=== PATIENT | male | born 1935 | race Caucasian/White ===

== ENCOUNTER 2018-09-26 14:52 | Outpatient (RCR) | payer MEDICARE ==
[2018-11-01] MEDS ORDERED: ATOR20TA66 PO (10:51)
[2018-11-01] MEDS ORDERED: ASPI-586 PO (10:51)
[2018-11-01] MEDS ORDERED: GABA-488 PO (10:51)
[2018-11-01] MEDS ORDERED: ACET-2650 PO (10:51)
[2018-11-01] MEDS ORDERED: SERT100T8 PO (10:51)
[2018-11-01] MEDS ORDERED: OMEP20TA33 PO (10:51)
[2018-11-01] MEDS ORDERED: LISI-556 PO (10:51)
[2018-11-01] MEDS ORDERED: AMLO5TAB9 PO (10:51)
== END 2018-12-25 | disposition home or self-care (01) ==
LOC: ONC 14:52
PROVIDERS: ATTEND Radiology Radiation Oncology
DX: C61 Malignant neoplasm of prostate (principal)
CPT/HCPCS: 99204

== ENCOUNTER 2018-11-01 05:35 | Outpatient (CLI) | payer MEDICARE ==
[~2018-11-01] VITALS: Ht 180.3 cm; Wt 88.5 kg
[2018-11-01] MEDS ORDERED: ATOR20TA66 PO (10:51)
[2018-11-01] MEDS ORDERED: AMLO5TAB9 PO (10:51)
[2018-11-01] MEDS ORDERED: OMEP20TA33 PO (10:51)
[2018-11-01] MEDS ORDERED: ACET-2650 PO (10:51)
[2018-11-01] MEDS ORDERED: ASPI-586 PO (10:51)
[2018-11-01] MEDS ORDERED: LISI-556 PO (10:51)
[2018-11-01] MEDS ORDERED: GABA-488 PO (10:51)
[2018-11-01] MEDS ORDERED: SERT100T8 PO (10:51)
== END 2018-11-01 13:33 | disposition home or self-care (01) ==
LOC: PREOP 05:35
PROVIDERS: ATTEND Radiology Radiation Oncology
DX: Z01.818 Encounter for other preprocedural examination (principal)

== ENCOUNTER 2018-11-08 10:19 | Day surgery (SDC) | payer MEDICARE ==
[~2018-11-08] VITALS: Ht 180.3 cm; Wt 88.5 kg
[~2018-11-08 10:19] MED LIST: ACET-2650 PO; AMLO5TAB9 PO; ASPI-586 PO; ATOR20TA66 PO; GABA-488 PO; LISI-556 PO; OMEP20TA33 PO; SERT100T8 PO
[2018-11-08 10:45] VITALS: BP 153/84
[2018-11-08] MEDS ORDERED: LACTATED RINGERS 1,000 ML IV PRN (10:53)
[2018-11-08] MEDS ORDERED: LEVOFLOXACIN 500 MG/100 ML IV 100 ML IV ONE (11:00)
[2018-11-08] MEDS ORDERED: DEXAMETHASONE 10 MG/ML (DECADRON) 1 ML VIAL ONE (11:23)
[2018-11-08] MEDS ORDERED: LIDOCAINE PF 2% 5 ML (XYLOCAINE) VIAL ONE (11:23)
[2018-11-08] MEDS ORDERED: ONDANSETRON 4 MG/2 ML (SDV) Z0FRAN ONE (11:23)
[2018-11-08] MEDS ORDERED: proPOfol 200 MG/20 ML (DIPRIVAN) VIAL IV ONE (11:23)
[2018-11-08] MEDS ORDERED: SEVOFLURANE (ULTANE) 15 ML INHAL SOLN ONE ×3 (11:26→13:00)
[2018-11-08] MEDS ORDERED: fentaNYL INJECTION 100 MCG/2 ML AMP ONE (12:15)
--- NOTE | 2018-11-08 12:16 | Progress Note-Pre Operative ---
Pre-Operative Progress Note H&P Reviewed The H&P was reviewed, patient examined and no changes noted. Date Seen by Provider: Nov 08, 2018 Time Seen by Provider: 11:55 Date H&P Reviewed: Nov 08, 2018 Time H&P Reviewed: 11:55 Pre-Operative Diagnosis: Prostate cancer cT2c, PSA 5.9, [place] 6 ROSE DUKES MD Nov 08, 2018 12:16
--- NOTE | 2018-11-08 12:20 | Discharge Inst-Simple/Standard ---
Discharge Inst-Standard Discharge Medications New, Converted or Re-Newed RX: Other (already has antibiotic with instructions) Patient Instructions/Follow Up Plan of Care/Instructions/FU: 1)Gracie will call and check status one week post op 2)November 21, 2018 arrive at [facility] at 10:00 a.m. - paperwork already given to pt's family Activity as Tolerated: Yes Discharge Diet: No Restrictions ROSE DUKES MD Nov 08, 2018 12:20
[2018-11-08] MEDS ORDERED: ONDANSETRON 4 MG/2 ML (SDV) Z0FRAN IVP PRN (14:00)
[2018-11-08] MEDS ORDERED: morphine INJ 10 MG/ML 1ML (SYR OR VIAL) IVP ONE (14:00)
--- NOTE | 2018-11-08 14:01 | Anesthesia-General Post-Op ---
General Patient Condition Mental Status/LOC: Same as Preop Cardiovascular: Satisfactory Nausea/Vomiting: Absent Respiratory: Satisfactory Pain: Controlled Complications: Absent Post Op Complications Complications None Follow Up Care/Instructions Patient Instructions None needed. Anesthesia/Patient Condition Patient Condition Patient is doing well, no complaints, stable vital signs, no apparent adverse anesthesia problems. No complications reported per nursing. [place] [facility] [place] YOUNG ASTUDILLO CRNA Nov 08, 2018 14:01
[2018-11-08 14:25] VITALS: BP 164/85
--- NOTE | 2018-11-08 14:30 | Progress Note-Post Operative ---
Post-Operative Progess Note Surgeon (s)/[employer] Technician (s) Surgeon Patricia HAMM MD Crown And Bridge Technician: ROSE DUKES MD Pre-Operative Diagnosis Prostate cancer cT2c, PSA 5.9, [place] 6 Post-Operative Diagnosis Same as pre-op Procedure & Operative Findings Date of Procedure 11/08/18 Procedure Performed/Findings 1)Placement of fiducial gold seed markers 2)Injection of biodegradable hydrogel prostate-rectal spacer utilizing the SpaceOAR system Anesthesia Type General Estimated Blood Loss Estimated blood loss (mL): Minimal Specimens/Packing Specimens Removed None Packing: None ROSE DUKES MD Nov 08, 2018 14:30
[2018-11-08 14:55] VITALS: BP 130/89
== END 2018-11-08 15:15 | disposition home or self-care (01) ==
LOC: SDC 10:19
PROVIDERS: ATTEND Radiology Radiation Oncology
DX: C61 Malignant neoplasm of prostate (principal); I25.10 Atherosclerotic heart disease of native coronary artery without angina pectoris; I10 Essential (primary) hypertension; E78.00 Pure hypercholesterolemia, unspecified; K21.9 Gastro-esophageal reflux disease without esophagitis; H40.9 Unspecified glaucoma; M19.91 Primary osteoarthritis, unspecified site; Z95.1 Presence of aortocoronary bypass graft; Z87.891 Personal history of nicotine dependence; Z79.82 Long term (current) use of aspirin; Z79.899 Other long term (current) drug therapy
CPT/HCPCS: 87081